=== PATIENT | male | born 1980 | race Two or more races ===

== ENCOUNTER 2019-10-04 08:39 | Emergency (ER) | payer SELFPAY ==
[~2019-10-04] VITALS: Ht 180.3 cm; Wt 108.9 kg
[2019-10-04 09:22] LABS: Basophils # (auto) 0 uL; Basophils % (auto) 0.4 % (0.0-2.0); Eosinophils # (auto) 0.1 uL; Eosinophils % (auto) 1.3 % (0.0-7.0); Hematocrit 44.5 % (41.0-53.0); Hemoglobin 15.6 g/dL (13.5-17.5); Lymphocytes % (auto) 27.8 % (10.0-50.0); Mean Corpuscular Hemoglobin 31.5 pg (28.0-32.0); Mean Corpuscular Hgb Conc. 35.1 g/dL (32.0-36.0); Mean Corpuscular Volume 89.7 fL (80.0-100.0); Monocytes # (auto) 0.4 uL; Monocytes % (auto) 5.1 % (0.0-12.0); Neutrophils # (auto) 4.8 uL; Neutrophils % (auto) 65.4 % (37.0-80.0); Nucleated Red Blood Cells % 0.1 %; Platelet Count (auto) 255 10^3/uL (140-450); Red Blood Cells 4.96 10^6/uL (4.5-5.90); White Blood Cell 7.3 10^3/uL (4.4-10.8)
[2019-10-04 09:47] LABS: Albumin 3.9 g/dL (3.4-5.0); Anion Gap 6 (5-15); Blood Urea Nitrogen 13 mg/dL (7-18); Calcium 8.9 mg/dL (8.5-10.1); Carbon Dioxide 26 mmol/L (21-32); Chloride 104 mmol/L (98-107); Glucose 359 mg/dL (74-106); Potassium 4.5 mmol/L (3.5-5.1); Sodium 136 mmol/L (136-145)
[2019-10-04 09:53] LABS: Alanine Aminotransferase 43 U/L (16-61); Alkaline Phosphatase 98 U/L (45-117); Aspartate Aminotransferase 20 U/L (15-37); Bilirubin, Total 0.9 mg/dL (0.2-1.0); GFR African American 115 mL/min; GFR Non-African American 95 mL/min; Total Protein 7.3 g/dL (6.4-8.2)
[2019-10-04] MEDS ORDERED: KETOROLAC TROMETH 30 MG/ML 1ML VIAL IV ONE (12:15)
[2019-10-04 12:36] VITALS: BP 165/114
== END 2019-10-04 12:59 | disposition home or self-care (01) ==
LOC: ER 08:39 → EDBD 08:39 → ER 12:50
DX: S40.012A Contusion of left shoulder, initial encounter (principal); S39.012A Strain of muscle, fascia and tendon of lower back, initial encounter; E11.65 Type 2 diabetes mellitus with hyperglycemia; I10 Essential (primary) hypertension; Z88.0 Allergy status to penicillin; W01.0XXA Fall on same level from slipping, tripping and stumbling without subsequent striking against object, initial encounter; Y93.89 Activity, other specified; Y92.89 Other specified places as the place of occurrence of the external cause; Y99.8 Other external cause status
CPT/HCPCS: 36415; 72100; 73030; 80053; 82962; 84484; 85025; 96374; 99284; J1885